=== PATIENT | male | born 1980 | race Caucasian/White ===

== ENCOUNTER 2021-09-06 14:17 | Emergency (ER) | payer OTHER ==
[2021-09-06] MEDS ORDERED: Ketorolac Tromethamine 30 MG/ML VIAL ONE ×2 (17:15)
== END 2021-09-06 17:20 | disposition home or self-care (01) ==
LOC: ERS 14:17
DX: S16.1XXA Strain of muscle, fascia and tendon at neck level, initial encounter (principal); W09.8XXA Fall on or from other playground equipment, initial encounter; I10 Essential (primary) hypertension; F17.210 Nicotine dependence, cigarettes, uncomplicated
CPT/HCPCS: 72125; 96372; J1885

== ENCOUNTER 2022-07-15 08:44 | Emergency (ER) | payer OTHER ==
[2022-07-15] MEDS ORDERED: Fluorescein Opthalmic Strip ONE (09:26)
[2022-07-15] MEDS ORDERED: Proparacaine 0.5% Opth 15 ML BOT ONE (09:26)
== END 2022-07-15 09:36 | disposition home or self-care (01) ==
LOC: ERS 08:44
DX: L03.213 Periorbital cellulitis (principal); I10 Essential (primary) hypertension; F17.210 Nicotine dependence, cigarettes, uncomplicated
CPT/HCPCS: 99283